=== PATIENT | female | born 1980 | race Caucasian/White ===

== ENCOUNTER 2021-01-01 13:47 | Outpatient (CLI) | payer OTHER | END 2021-01-01 14:03 | disposition home or self-care (01) | LOC: SONOGRAMA 13:47 | PROVIDERS: ATTEND Internal Medicine Rheumatology | DX: M77.01 Medial epicondylitis, right elbow (principal) ==

== ENCOUNTER 2021-03-12 09:55 | Day surgery (SDC) | payer OTHER | END 2021-03-12 17:05 | disposition home or self-care (01) | LOC: CIR.AMB 09:55 | PROVIDERS: ATTEND Orthopaedic Surgery | DX: M77.11 Lateral epicondylitis, right elbow (principal); Z20.822 Contact with and (suspected) exposure to COVID-19 ==